=== PATIENT | female | born 1985 ===

== ENCOUNTER 2018-07-09 01:40 | Emergency (ER) | payer BC ==
[2018-07-09] MEDS ORDERED: Sodium Chloride 0.9% 1,000 ML IV ONE (01:52)
[2018-07-09] MEDS ORDERED: Sodium Chloride 0.9% 10 ML Syringe FLUSH PRN (01:52)
--- NOTE | 2018-07-09 02:04 | EDM.PDOC ---
ED HPI GENERAL MEDICAL PROBLEM - General Chief Complaint: Gastrointestinal Problem Stated Complaint: abdominal pain Time Seen by Provider: 07/09/18 01:51 Source of Information: Reports: Patient History Limitations: Reports: No Limitations - History of Present Illness INITIAL COMMENTS - FREE TEXT/NARRATIVE: Patient reports abdomen pain since 5 pm. She describes it as in the middle ans it is sharp and stabbing. Radiation to the right lower quadrant. Does endorse nausea. Denies recent illness. No fever, chills, headache, chest pain or SOB. She also denies blood in urine or stool. No recent surgeries. Has not had gall bladder or appendix removed. Onset: Today, Sudden Duration: Intermittent Location: Reports: Abdomen Quality: Reports: Sharp, Stabbing Associated Symptoms: Reports: Nausea/Vomiting ED ROS GENERAL - Review of Systems Review Of Systems: See Below Constitutional: Reports: No Symptoms HEENT: Reports: No Symptoms Respiratory: Reports: No Symptoms Cardiovascular: Reports: No Symptoms Endocrine: Reports: No Symptoms GI/Abdominal: Reports: Abdominal Pain, Nausea : Reports: No Symptoms Musculoskeletal: Reports: No Symptoms Skin: Reports: No Symptoms Neurological: Reports: No Symptoms Psychiatric: Reports: No Symptoms Hematologic/Lymphatic: Reports: No Symptoms Immunologic: Reports: No Symptoms ED EXAM, GI/ABD - Physical Exam Exam: See Below Exam Limited By: No Limitations General Appearance: Alert, WD/WN, Mild Distress Eyes: Bilateral: Normal Appearance, EOMI Ears: Normal TMs Throat/Mouth: Normal Inspection, Normal Lips, Normal Teeth, Normal Gums, Normal Oropharynx, Normal Voice, No Airway Compromise Head: Atraumatic, Normocephalic Neck: Normal Inspection, Supple, Non-Tender, Full Range of Motion Respiratory/Chest: No Respiratory Distress, Lungs Clear, Normal Breath Sounds, No Accessory Muscle Use, Chest Non-Tender Cardiovascular: Normal Peripheral Pulses, Regular Rate, Rhythm, No Edema, No Gallop, No JVD, No Murmur, No Rub GI/Abdominal Exam: Normal Bowel Sounds, Soft, Rebound, Tender Back Exam: Normal Inspection, Full Range of Motion, NT Extremities: Normal Inspection, Normal Range of Motion, Non-Tender, Normal Capillary Refill, No Pedal Edema Neurological: Alert, Oriented, CN II-XII Intact, Normal Cognition, Normal Gait, Normal Reflexes, No Motor/Sensory Deficits Psychiatric: Normal Affect, Normal Mood Skin Exam: Warm, Dry, Intact, Normal Color, No Rash Lymphatic: No Adenopathy Course - Orders/Labs/Meds Orders: Active Orders 24 hr Category Date Time Status C-REACTIVE PROTEIN [CHEM] Stat Lab 07/09/18 01:52 Ordered CBC WITH AUTO DIFF [HEME] Stat Lab 07/09/18 01:52 Ordered COMPREHENSIVE METABOLIC PN,CMP [CHEM] Stat Lab 07/09/18 01:52 Ordered HCG QUALITATIVE,URINE [URCHEM] Stat Lab 07/09/18 01:52 Ordered LACTIC ACID [CHEM] Stat Lab 07/09/18 01:52 Ordered UA W/MICROSCOPIC [URIN] Stat Lab 07/09/18 01:52 Ordered Sodium Chloride 0.9% [Normal Saline] 1,000 ml Med 07/09/18 01:52 Ordered IV ONETIME Sodium Chloride 0.9% [Saline Flush] Med 07/09/18 01:52 Ordered 10 ml FLUSH ASDIRECTED PRN Saline Lock Insert [OM.PC] Routine Oth 07/09/18 01:52 Ordered Departure - Departure Time of Disposition: 04:27 Disposition: Home, Self-Care 01 Condition: Good Clinical Impression: UTI, Urinary tract infectious disease - Discharge Information *PRESCRIPTION DRUG MONITORING PROGRAM REVIEWED*: Not Applicable *COPY OF PRESCRIPTION DRUG MONITORING REPORT IN PATIENT MARTIN: Not Applicable Instructions: Urinary Tract Infection, Adult, [id number] Forms: ED Department Discharge Additional Instructions: Plan 1. Stay well hydrated 2. Follow up with primary provider in 7-10 days to be sure infection has cleared 3. We will call with urine culture results if you need to change antibiotics 4. Take the macrobid twice a day for 5 days 5. Please follow up with your regular provider if you have additional pain or it worsens over the next few days 6. Please call with any additional questions or concerns - Problem List & Annotations (1) UTI, Urinary tract infectious disease SNOMED Code(s): 44544188 Code(s): N39.0 - URINARY TRACT INFECTION, SITE NOT SPECIFIED Status: Acute Priority: Medium Current Visit: Yes - Problem List Review Problem List Initiated/Reviewed/Updated: Yes - My Orders Last 24 Hours: My Active Orders 07/09/18 01:52 C-REACTIVE PROTEIN [CHEM] Stat CBC WITH AUTO DIFF [HEME] Stat COMPREHENSIVE METABOLIC PN,CMP [CHEM] Stat HCG QUALITATIVE,URINE [URCHEM] Stat LACTIC ACID [CHEM] Stat UA W/MICROSCOPIC [URIN] Stat Sodium Chloride 0.9% [Normal Saline] 1,000 ml IV ONETIME Sodium Chloride 0.9% [Saline Flush] 10 ml FLUSH ASDIRECTED PRN Saline Lock Insert [OM.PC] Routine - Assessment/Plan Last 24 Hours: My Active Orders 07/09/18 01:52 C-REACTIVE PROTEIN [CHEM] Stat CBC WITH AUTO DIFF [HEME] Stat COMPREHENSIVE METABOLIC PN,CMP [CHEM] Stat HCG QUALITATIVE,URINE [URCHEM] Stat LACTIC ACID [CHEM] Stat UA W/MICROSCOPIC [URIN] Stat Sodium Chloride 0.9% [Normal Saline] 1,000 ml IV ONETIME Sodium Chloride 0.9% [Saline Flush] 10 ml FLUSH ASDIRECTED PRN Saline Lock Insert [OM.PC] Routine Assessment:: urinary tract infection Plan: Plan 1. Stay well hydrated 2. Follow up with primary provider in 7-10 days to be sure infection has cleared 3. We will call with urine culture results if you need to change antibiotics 4. Take the macrobid twice a day for 5 days 5. Please follow up with your regular provider if you have additional pain or it worsens over the next few days 6. Please call with any additional questions or concerns
[2018-07-09] MEDS ORDERED: Ondansetron 4 MG/2 ML SDV IVPUSH ONE (02:10)
[2018-07-09 02:29] LABS: ANION GAP 18.1 mmol/L (10-20); CHLORIDE,CL 102 mmol/L (98-107); SODIUM,NA 141 mmol/L (136-145)
[2018-07-09] MEDS ORDERED: Iopamidol 612 MG/ML 100 ML Bottle IVPUSH ONE (03:37)
[2018-07-09] MEDS ORDERED: Nitrofurantoin Monohydrate/Macrocrystalline 100 MG Cap PO ONE (04:14)
[2018-07-09] MEDS ORDERED: Ketorolac 15 MG/ML SDV IVPUSH ONE (04:16)
--- NOTE | 2018-07-09 09:39 | CT ---
[id number] CT/CT Abdomen Pelvis W IV EXAM: CT Abdomen Pelvis W IV CLINICAL DATA: ABDOMINAL PAIN COMPARISON: NO PREVIOUS SIMILAR EXAM IS AVAILABLE. FINDINGS: The appendix and gallbladder are normal. There is no diverticulitis. The liver and spleen are unremarkable. The kidneys and adrenals show no abnormality. The aorta and pancreas are within normal limits. There is no bowel distention. There is no bowel wall thickening either. There is no free fluid or free air. There is no adenopathy. The pelvis shows no mass, free fluid, abscess, inflammatory change, or adenopathy. IMPRESSION: NO ACUTE PROCESS. Jr Keys MD 07/09/18 0938 Thank you for allowing us to participate in the care of your patient.
== END 2018-07-09 04:39 | disposition home or self-care (01) ==
LOC: VM.ED 01:40
DX: N39.0 Urinary tract infection, site not specified (principal)
CPT/HCPCS: 74177; 80053; 81001; 81025; 83605; 85025; 86140; 87086; 96361; 96374; 96375; 99284-25; A9270-GY; J1885; J2405; J7030; Q9967